=== PATIENT | male | born 1965 | race Two or more races ===

== ENCOUNTER 2024-10-24 11:30 | Emergency (ER) | payer OTHER ==
[~2024-10-24] VITALS: Ht 190.5 cm; Wt 127.9 kg
[~2024-10-24 11:30] MED LIST: KETO10TA2 PO; MEDROLPACK PO; ORPH100T PO
[2024-10-24 11:43] VITALS: BP 111/73; O2SAT 99
[2024-10-24] MEDS ORDERED: ELIQUIS5 MG PO (11:43)
[2024-10-24] MEDS ORDERED: ALDACTONE25 MG PO (11:44)
[2024-10-24] MEDS ORDERED: JARDIANCE10 MG PO (11:44)
[2024-10-24] MEDS ORDERED: EZALLOR SPRINKL20 MG PO (11:45)
[2024-10-24] MEDS ORDERED: METHOTREXA25 MG/1 M5 SUBCUTANEO (11:45)
[2024-10-24] MEDS ORDERED: DIALYVITE TABL1 EACH PO (11:45)
[2024-10-24] MEDS ORDERED: ADCIRCA20 MG PO (11:45)
== END 2024-10-24 12:21 | disposition home or self-care (01) ==
LOC: ER 11:33
DX: K42.9 Umbilical hernia without obstruction or gangrene (principal)

== ENCOUNTER 2024-12-29 23:15 | Emergency (ER) | payer OTHER ==
[~2024-12-29] VITALS: Ht 188 cm; Wt 117.9 kg
[~2024-12-29 23:15] MED LIST changes: +ADCIRCA20 MG PO; +ALDACTONE25 MG PO; +DIALYVITE TABL1 EACH PO; +ELIQUIS5 MG PO; +EZALLOR SPRINKL20 MG PO; +JARDIANCE10 MG PO; +METHOTREXA25 MG/1 M5 SUBCUTANEO
[2024-12-29] MEDS ORDERED: WEGOVY0.25 MG/0. SQ (23:52)
[2024-12-29] MEDS ORDERED: CARVEDILOL6.25 MG (23:52)
== END 2024-12-30 13:37 | disposition home or self-care (01) ==
LOC: ER 23:18
DX: S00.93XA Contusion of unspecified part of head, initial encounter (principal); W18.39XA Other fall on same level, initial encounter; Y93.89 Activity, other specified; Y92.89 Other specified places as the place of occurrence of the external cause; Y99.9 Unspecified external cause status